=== PATIENT | female | born 1960 ===

== ENCOUNTER 2016-12-04 18:25 | Emergency (ER) | payer OTHER, MEDICAID ==
[2016-12-04 18:48] VITALS: BP 104/68; PULSE 78; RESP 20; TEMP 98; O2SAT 100
[2016-12-04] MEDS ORDERED: Oxycodone/Acetaminophen 5/325 mg Tab PO STA (19:23)
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
[2016-12-04] MEDS ORDERED: Oxycodone/Acetaminophen 5/325 mg Tab ONE (19:28)
[2016-12-04 19:57] LABS: RBC URINE 3 /hpf (0-3); URINE BACTERIA RARE (<OCC); URINE BILIRUBIN NEGATIVE (NEGATIVE); URINE BLOOD NEGATIVE (NEGATIVE); URINE COLOR Yellow (YELLOW); URINE GLUCOSE (UA) NORMAL (Normal); URINE KETONE NEGATIVE (NEGATIVE); URINE LEUKOCYTE ESTERASE NEG Leu/uL (Negative); URINE PROTEIN NEGATIVE (NEGATIVE); URINE UROBILINOGEN NORMAL mg/dL (0.2-1.0); WBC URINE 6 /hpf (0-5)
--- NOTE | 2016-12-05 11:29 | RAD ---
PROCEDURE: Cervical spine HISTORY: Posttraumatic neck pain. COMPARISON: None TECHNIQUE: AP, lateral, open-mouth views for assessment of the C1-C2 relationship FINDINGS: Unremarkable cervical vertebral bodies and alignment. Preserved C1-C2 relationship No pre or para-vertebral abnormalities. Degenerative changes: Cervical spondylotic changes primarily non marginal osteophytes C4-5 and C5-6. IMPRESSION: No acute findings related to/accounting for the clinical presentation. Concordant results with the preliminary interpretation rendered by the emergency department physician procedure.
== END 2016-12-04 20:46 | disposition home or self-care (01) ==
LOC: C.ER 18:25
DX: S33.5XXA Sprain of ligaments of lumbar spine, initial encounter (principal); S16.1XXA Strain of muscle, fascia and tendon at neck level, initial encounter; V43.62XA Car passenger injured in collision with other type car in traffic accident, initial encounter; Y92.410 Unspecified street and highway as the place of occurrence of the external cause